=== PATIENT | female | born 1945 | race Two or more races ===

== ENCOUNTER 2018-01-17 21:49 | Emergency (ER) | payer MEDICAID, MEDICARE ==
[2018-01-17 21:50] VITALS: BMI 25.8
[2018-01-17 22:09] VITALS: BP 175/84; PULSE 82; RESP 20; TEMP 97.6; O2SAT 98
--- NOTE | 2018-01-18 04:22 | C.PDOC ---
History Of Present Illness 72 year old female presents to the ER with a complaint of left knee pain after she twisted it while going down some stairs. Patient did not take anything at home for the pain. Denies weakness or numbness. Time Seen by Provider: 01/17/18 22:26 Chief Complaint (Nursing): Lower Extremity Problem/Injury History Per: Patient History/Exam Limitations: no limitations Onset/Duration Of Symptoms: Hrs Current Symptoms Are (Timing): Still Present - Knee Description Of Injury: Twisted Past Medical History Reviewed: Historical Data, Nursing Documentation, Vital Signs Vital Signs: Last Vital Signs Temp 97.6 F 01/17/18 22:03 Pulse 82 01/17/18 22:03 Resp 20 01/17/18 22:03 BP 175/84 H 01/17/18 22:03 Pulse Ox 98 01/18/18 04:32 - Medical History PMH: Denies: Chronic Kidney Disease - [facility] Procedures CATARAC PHACOEMULS/ASPIR (09/24/14) INSERT LENS AT CATAR EXT (09/24/14) Family History: States: No Known Family Hx - Social History Hx Alcohol Use: No Hx Substance Use: No Review Of Systems Musculoskeletal: Positive for: Other (Left knee pain) Neurological: Negative for: Weakness, Numbness Physical Exam - Physical Exam Appears: Non-toxic Skin: Normal Color, Warm, Dry Head: Atraumatic, Normacephalic Eye(s): bilateral: Normal Inspection Neck: Normal ROM Chest: Symmetrical Extremity: No Calf Tenderness, Capillary Refill (<2 seconds), No Deformity, Other (Swelling and tenderness to anterior left knee, pain with flexion of left knee) Pulses: Left Dorsalis Pedis: Normal, Right Dorsalis Pedis: Normal Neurological/Psych: Oriented x3, Normal Speech, Normal Motor, Normal Sensation Gait: Steady ED Course And Treatment O2 Sat by Pulse Oximetry: 98 (Room air) Pulse Ox Interpretation: Normal - Other Rad Left knee x-ray X-Ray: Interpreted by Me, Viewed By Me Interpretation: Degenerative changes, no acute fractures or dislocations. Medical Decision Making Medical Decision Making: Left knee x-ray ordered, results were negative. Toradol administered. Patient is resting comfortably in the ER in no acute distress, able to ambulate with steady gait. RN applied knee support. Patient to be discharged home with instructions to follow up with PMD. Disposition Counseled Patient/Family Regarding: Diagnosis, Need For Followup, Rx Given - Disposition Referrals: Alysha Cabral MD [Medical Doctor] - Disposition: HOME/ ROUTINE Disposition Time: 00:45 Condition: STABLE Additional Instructions: Follow up with your primary medical doctor or clinic in 2-5 days for further evaluation. Take medications as prescribed. Return to the emergency department at any time if symptoms persist or worsen. Prescriptions: Naproxen [Naprosyn] 1 tab PO BID PRN #25 tab PRN Reason: Pain Instructions: Knee Sprain (DC) - POA Present On Arrival: None - Clinical Impression Clinical Impression: Knee sprain - PA / [employer] REPRESENTATIVE / Resident Statement MD/DO has reviewed & agrees with the documentation as recorded. - Scribe Statement The provider has reviewed the documentation as recorded by the Scribe Suraj Costa All medical record entries made by the Adelitaibmagen were at my direction and personally dictated by me. I have reviewed the chart and agree that the record accurately reflects my personal performance of the history, physical exam, medical decision making, and the department course for this patient. I have also personally directed, reviewed, and agree with the discharge instructions and disposition.
--- NOTE | 2018-01-18 10:44 | RAD ---
Date of service: 01/17/2018 PROCEDURE: Left Knee Radiographs. HISTORY: Pain. COMPARISON: None. FINDINGS: BONES: Bone alignment and mineralization are normal. There is no acute displaced fracture or bone destruction. JOINTS: There is mild tricompartmental degenerative osteoarthrosis with reduced joint spaces, marginal osteophytes and tibial spiking, worse in the media compartment. JOINT EFFUSION: There is a small suprapatellar joint effusion. OTHER FINDINGS: None. IMPRESSION: Mild tricompartmental degenerative osteoarthrosis, worse in the medial compartment. Small suprapatellar joint effusion.
== END 2018-01-18 00:47 | disposition home or self-care (01) ==
LOC: C.ER 21:49
DX: S83.92XA Sprain of unspecified site of left knee, initial encounter (principal); X50.1XXA Overexertion from prolonged static or awkward postures, initial encounter